=== PATIENT | female | born 1945 | race Caucasian/White ===

== ENCOUNTER 2017-05-09 02:43 | Day surgery (SDC) | payer MEDICARE, OTHER ==
[~2017-05-09] VITALS: Ht 149.9 cm; Wt 83.5 kg
[~2017-05-09 02:43] MED LIST: ALBU90AE IH; ALPR0.5T8 PO; FUR20 PO; LISI-571 PO; NAPR1TAB25 PO; OMEP20CA11 PO; POLY17PO6 PO; POTA10TA38 PO; PRE20 PO; SIMV20TA4 PO; VIT1CAPS33 PO
[2017-05-09] MEDS ORDERED: Sodium Chloride LOK Flush 10 mL Syringe IV PRN (06:00)
[2017-05-09] MEDS ORDERED: fentaNYL-PF 50 mCg/mL 2 mL Inj IVPUSH PRN (06:00)
[2017-05-09 10:32] VITALS: BP 135/85; PULSE 75; RESP 16; O2SAT 95
[2017-05-09] MEDS: 0.9% Sodium Chloride 1,000 ML IV SCH ×2 (11:09→11:19)
[2017-05-09 11:23] VITALS: BP 118/68; PULSE 64; RESP 16; O2SAT 97
[2017-05-09 11:33] VITALS: BP 109/69; PULSE 69; RESP 16; O2SAT 97
[2017-05-09 11:39] VITALS: BP 119/76; PULSE 69; RESP 16; O2SAT 96
--- NOTE | 2017-05-09 22:36 | ENDO ---
[address] [address] ENDOSCOPY PROCEDURE PATIENT: JESUS MANUEL CRUZ : 1945 MR#: [id number] ADMIT: 05/09/2017 JOB ID: [id number] DATE OF PROCEDURE: 05/09/2017 PROCEDURE: Colonoscopy. INDICATION: Screening. SEDATION: Patient's ASA classification is II. Mallampati score is 2. MEDICATIONS: 1. Versed 3 mg. 2. Fentanyl 75 mcg. INSTRUMENT USED: PCF-H180AL. PREPARATION QUALITY: Good. PROCEDURE DETAILS: After informed consent was obtained, the patient was brought to the GI suite, where she was placed on oxygen via nasal cannula and monitored with continuous pulse oximeter, telemetry, and blood pressure monitoring. A time-out was performed, then she was placed in the left lateral decubitus position and medications were administered for sedation. Digital rectal exam was performed which was unremarkable. The colonoscope was then inserted into the rectum and advanced under direct visualization to the cecum, which identified by the presence of the ileocecal valve and appendiceal orifice. Once the cecum was reached colonoscope was withdrawn back into the rectum as the mucosa and lumen were examined. In the rectum, retroflexion was performed. Following retroflexion, remaining air in the rectum was suctioned and procedure was completed. FINDINGS: 1. In the cecum, there was an approximately 4 mm sessile polyp that was removed with a cold snare. 2. In the descending colon, there was an approximately 4 mm sessile polyp that was removed with cold snare. 3. In the rectum, there were two diminutive polyps removed with cold biopsy forceps. 4. Scattered diverticula were seen throughout the left side of the colon. IMPRESSION: 1. Cecal polyp. 2. Descending colon polyp. 3. Two rectal polyps. 4. Left-sided diverticulosis. RECOMMENDATIONS: 1. Repeat colonoscopy pending polyp pathology results. 2. Fiber rich diet. COMPLICATIONS: None. ESTIMATED BLOOD LOSS: Less than 5 mL.
--- NOTE | 2017-05-10 11:55 | PATH ---
SURGICAL PATHOLOGY Attending Physician:Aviva Rowland CASE STATUS: Signed Out PATIENT NAME: JESUS MANUEL CRUZ PID: [id number] : 1945 DATE COLLECTED:05/09/2017 17:16 SPECIMEN: 1: Colon, Polyp 2: Colon, Polyp 3: Rectum, Biopsy CLINICAL HISTORY: 1. CECAL POLYP 2. DESCENDING COLON POLYP 3. RECTAL POLYP X2 FINAL DIAGNOSIS: 1.CECAL POLYP: TUBULAR ADENOMA. 2.DESCENDING COLON POLYP: TUBULAR ADENOMA. 3.RECTAL POLYPS: HYPERPLASTIC POLYP INVOLVING TWO BIOPSY FRAGMENTS. ICD10 D12.4 GROSS DESCRIPTION: The specimen is received in three formalin filled containers labeled with the patient's name. 1). The specimen is sublabeled "cecal polyp" and consists of 3 portions of tissue which aggregate to 0.2 x 0.2 x 0.2 CM. The specimen is entirely submitted in cassettes 1A. 2). The specimen is sublabeled "descending colon polyp" and consists of a 0.3 x 0.2 x 0.2 CM portion of tissue which is entirely submitted in cassette 2A. 3). The specimen is sublabeled "rectal polyps" and consists of portions of tissue which aggregate to 0.3 x 0.3 x 0.2 CM. The specimen is entirely submitted in cassette 3A. 05/09/2017 DAC MICRO DESCRIPTION: See diagnosis. ICD-9 CODES: CPT CODES: 1: 29147 2: 32278 3: 65393 Electronically Signed Out Jamie Almaraz MD [facility] Pathology [facility] [address], [place] [address] Technical component performed at [facility], [address] [place] [address] Ave[address], [place], [address]
== END 2017-05-09 23:59 | disposition home or self-care (01) ==
LOC: END 02:43
PROVIDERS: ATTEND Internal Medicine Gastroenterology
DX: Z12.11 Encounter for screening for malignant neoplasm of colon (principal); D12.0 Benign neoplasm of cecum; D12.4 Benign neoplasm of descending colon; K62.1 Rectal polyp; K57.30 Diverticulosis of large intestine without perforation or abscess without bleeding; I10 Essential (primary) hypertension; E78.00 Pure hypercholesterolemia, unspecified; E87.6 Hypokalemia; M10.072 Idiopathic gout, left ankle and foot; G25.81 Restless legs syndrome; R73.01 Impaired fasting glucose; F41.1 Generalized anxiety disorder; Z85.820 Personal history of malignant melanoma of skin
CPT/HCPCS: 45380; 45385; 88305; G0500; J2250; J3010; J7030